=== PATIENT | female | born 1985 | race Caucasian/White ===

== ENCOUNTER 2017-07-02 04:07 | Emergency (ER) | payer OTHER ==
[~2017-07-02] VITALS: Ht 154.9 cm; Wt 95.2 kg
[~2017-07-02 04:07] MED LIST: ACETAMINOPHEN PO; ALIGN PO; BIRTH CONTROL PILL; CELEXA PO; CIPRO PO; DIAZEPAM PO; FLAGYL PO; HYDROCODONE-APA1 T45; HYDROCORTISONE PR; LOMOTIL TABLET1 TAB PO; LORTAB 7.5-5001 TAB PO; MEDROL PO; PERCOCET PO; PHENERGAN PO; PREDNISONE PO; PRILOSEC PO; PROTONIX PO; TRAZODONE PO; TRI NESSA PO
[2017-07-02] MEDS ORDERED: NO MEDICATIONS (04:14)
== END 2017-07-02 06:04 | disposition home or self-care (01) ==
LOC: SED 04:07
DX: H60.91 Unspecified otitis externa, right ear (principal); Z88.2 Allergy status to sulfonamides; Z88.8 Allergy status to other drugs, medicaments and biological substances
CPT/HCPCS: 96372; 99282; J1885